=== PATIENT | male | born 1965 | race Caucasian/White ===

== ENCOUNTER → 2020-03-11 | Outpatient (CLI) | payer OTHER ==
[2020-03-12 06:06] LABS: RUBEOLA (MEASLES) IGG >300.0 AU/mL (Immune >16.4)
== END | disposition home or self-care (01) ==
LOC: PUC 11:08
DX: Z02.1 Encounter for pre-employment examination (principal)
CPT/HCPCS: 86706; 86735; 86762; 86765; 86787

== ENCOUNTER → 2020-07-19 | Outpatient (CLI) | payer OTHER | END | disposition home or self-care (01) | LOC: EMS 09:28 | DX: Z20.828 Contact with and (suspected) exposure to other viral communicable diseases (principal) | CPT/HCPCS: U0003-CS ==

== ENCOUNTER 2021-05-16 12:18 | Emergency (ER) | payer OTHER ==
[~2021-05-16] VITALS: Ht 177.8 cm; Wt 113.6 kg
[2021-05-16] MEDS ORDERED: METF-911 PO (12:24)
[2021-05-16] MEDS ORDERED: AMLO10TA55 PO (12:24)
[2021-05-16] MEDS ORDERED: ACETAMINOPHEN 325 MG TABLET PO ONE (12:45)
[2021-05-16 14:31] VITALS: BP 147/88
== END 2021-05-16 15:15 | disposition home or self-care (01) ==
LOC: EMS 12:19
DX: S00.12XA Contusion of left eyelid and periocular area, initial encounter (principal); H11.32 Conjunctival hemorrhage, left eye; X58.XXXA Exposure to other specified factors, initial encounter; Y93.89 Activity, other specified; Y92.89 Other specified places as the place of occurrence of the external cause; Y99.0 Civilian activity done for income or pay
CPT/HCPCS: 70450; 70486; 99285